=== PATIENT | female | born 1960 | race Hispanic/Latino ===

== ENCOUNTER 2024-06-02 13:39 | Emergency (ER) | payer OTHER ==
[2024-06-02] MEDS ORDERED: IBUPROFEN 200 MG TAB PO ONE (14:19)
--- NOTE | 2024-06-02 14:38 | RAD REPORT ---
EXAMINATION: Wrist Left 3 View, Hand Left 3 View CLINICAL INDICATION: Female, 63 years old. PAIN COMPARISON: No prior exam. VIEWS: 6 views FINDINGS: No acute fracture. [place] versus remote ulnar styloid fracture. No malalignment/dislocation. Mild to moderate degenerative changes are present the base of the thumb. Mild interphalangeal joint s pace narrowing. No erosions identified. Other: n/a IMPRESSION: No acute osseous abnormality involving either the left hand or wrist.
--- NOTE | 2024-06-02 15:00 | EDPHYS ---
Physician Documentation [facility] Name: Yamileth Anderson Age: 63 yrs Sex: Female : 1960 Arrival Date: 06/02/2024 Time: 13:39 Bed 11 Private MD: ED Physician Helena Benítez HPI: 06/02 14:09 This 63 yrs old Female presents to ER via Ambulatory with complaints of Hand cp Pain. 14:09 The patient or guardian reports pain. The complaints affect the left hand and left cp wrist. Context: gradually since March 2025. 14:09 Onset: The symptoms/episode began/occurred 3 month(s) ago. cp 14:09 Associated signs and symptoms: Pertinent positives: numbness of fingers, Pertinent cp negatives: acute injury. Historical: - Allergies: 14:08 PENICILLINS; cm10 14:08 Ampicillin; cm10 - PMHx: 14:08 Diabetes mellitus; Hypertensive disorder; cm10 - Immunization history:: Adult Immunizations up to date. - Infectious Disease History:: Denies. - Social history:: Smoking status: Patient denies any tobacco usage or history of. ROS: 14:15 MS/extremity: Positive for pain, of the left hand and left wrist, cp 14:15 Neck: Negative for pain with movement, pain at rest, cp 14:15 Eyes: Negative for injury, pain, redness, and discharge, cp 14:15 Constitutional: Negative for body aches, chills, fever, 14:15 Back: Negative for pain at rest, pain with movement, 14:15 All other systems are negative, Exam: 14:15 Head/Face: Normocephalic, atraumatic. cp 14:15 Constitutional: The patient appears in no acute distress, alert, awake, non-toxic, well developed, well nourished, 14:15 Neck: ROM/movement: pain, is not appreciated, limited range of motion, is not appreciated, 14:15 Chest/axilla: Inspection: normal, 14:15 Cardiovascular: Rate: tachycardic, Pulses: Pulses are 2+ in left radial artery. 14:15 Respiratory: the patient does not display signs of respiratory distress, Respirations: normal, no use of accessory muscles, no retractions, 14:15 Abdomen/GI: Inspection: abdomen appears normal, 14:15 Musculoskeletal/extremity: Extremities: noted in the left hand and left wrist: pain, tenderness, There is no evidence of decreased ROM, deformity, ROM: full active range of motion, in the left hand, Perfusion: the extremity is normally perfused throughout, the left middle and fourth fingers Tingling of extremity. Vital Signs: 14:07 BP 101 / 78; Pulse 112; Resp 15; Temp 96.6(TE); Pulse Ox 99% on R/A; Pain 10/10; cm10 15:19 BP 105 / 70; Pulse 101; Resp 16; Temp 98.1; Pulse Ox 100% ; me1 14:07 Pain Scale: Adult cm10 MDM: 14:04 Medical Screening Exam initiated cp 14:58 Data reviewed: vital signs, nurses notes, radiologic studies, plain films, and as a cp result, I will discharge patient. 14:58 Differential diagnosis: closed fracture, tendonitis, neuropathy. I considered the cp following discharge prescriptions or medication management in the emergency department Medications were administered in the Emergency Department. See MAR. Counseling: I had a detailed discussion with the patient and/or guardian regarding the historical points, exam findings, and any diagnostic results supporting the discharge/admit diagnosis, radiology results, the need for outpatient follow up, a hand specialist, to return to the emergency department if symptoms worsen or persist or if there are any questions or concerns that arise at home. Response to treatment: the patient's symptoms have mildly improved after treatment, and as a result, I will discharge patient. 06/02 14:16 Order name: XRAY Wrist LEFT 3 view; Complete Time: 14:54 cp 06/02 14:54 Interpretation: Report reviewed. cp 06/02 14:16 Order name: XRAY Hand LEFT 3 View; Complete Time: 14:54 cp 06/02 14:55 Interpretation: Report reviewed. cp Administered Medications: 14:25 Drug: Ibuprofen PO 600 mg PO once Route: PO; me1 15:20 Follow up: Response: No adverse reaction; Pain is decreased me1 Disposition Summary: 06/02/24 14:59 Discharge Ordered Notes: Location: Home cp Problem: an ongoing problem cp Symptoms: have improved cp Condition: Stable cp Diagnosis - Pain in hand and fingers cp - Pain in left wrist cp Followup: cp - With: Private Physician - When: DR Misael Manriquez - Reason: Recheck today's complaints Discharge Instructions: - Discharge Summary Sheet cp - Arthritis cp - Wrist Pain, Adult cp - Hand Pain cp Forms: - Medication Reconciliation Form cp - Antibiotic Education cp - Prescription Opioid Use cp - Patient Portal Instructions cp - Leadership Thank You Letter cp Prescriptions: - Celebrex 100 mg Oral Capsule - take 1 capsule ORAL route every 12 hours As needed take with food; 40 capsule; cp Refills: 0, Product Selection Permitted Signatures: Dispatcher [employer] John Andrade PA PA cp Martinez, Clarissa RN RN cm10 Cindy Buckley RN RN me1
--- NOTE | 2024-06-02 15:00 | ER ---
Nurse's Notes [facility] Name: Yamileth Anderson Age: 63 yrs Sex: Female : 1960 Arrival Date: 06/02/2024 Time: 13:39 Bed 11 Private MD: Diagnosis: Pain in hand and fingers;Pain in left wrist Presentation: 06/02 14:07 Chief complaint: Patient states: Left hand pain onset March. Pt reports having cm10 previous injury from when she was 19. Coronavirus screen: Client denies travel out of the [place] in the last 14 days. Ebola Screen: Patient denies travel to an Ebola-affected area in the 21 days before illness onset. Initial Sepsis Screen: Does the patient meet any 2 criteria? HR > 90 bpm. Does the patient have a suspected source of infection? No. Patient's initial sepsis screen is negative. Risk Assessment: Do you want to hurt yourself or someone else? Patient reports no desire to harm self or others. Onset of symptoms is unknown. 14:07 Method Of Arrival: Ambulatory cm10 14:07 Acuity: ELIZABETH 4 cm10 Historical: - Allergies: 14:08 PENICILLINS; cm10 14:08 Ampicillin; cm10 - PMHx: 14:08 Diabetes mellitus; Hypertensive disorder; cm10 - Immunization history:: Adult Immunizations up to date. - Infectious Disease History:: Denies. - Social history:: Smoking status: Patient denies any tobacco usage or history of. Screenin:21 [facility] ED Fall Risk Assessment (Adult) History of falling in the last 3 months, me1 including since admission No falls in past 3 months (0 pts) Confusion or Disorientation No (0 pts) Intoxicated or Sedated No (0 pts) Impaired Gait No (0 pts) Mobility Assist Device Used No (0 pt) Altered Elimination No (0 pt) Score/Fall Risk Level 0 - 2 = Low Risk Maintained a safe environment, Provided non-skid footwear, Hourly rounding (assess needs \T\ fall precautionary measures) done. Abuse screen: Denies threats or abuse. Nutritional screening: No deficits noted. Tuberculosis screening: No symptoms or risk factors identified. Assessment: 14:21 General: Appears in no apparent distress. Behavior is calm, cooperative, appropriate me1 for age, Reports Left hand pain onset March. Pt reports having previous injury from when she was 19. Pain: Complains of pain in left hand Pain does not radiate. Pain Quality of pain is described as aching, Pain began gradually, Is continuous. Neuro: Level of Consciousness is awake, alert, obeys commands, Oriented to person, place, time, situation, Appropriate for age. Cardiovascular: Patient's skin is warm and dry. Respiratory: Airway is patent Respiratory effort is even, unlabored, Respiratory pattern is regular, symmetrical. GI: No signs and/or symptoms were reported involving the gastrointestinal system. : No signs and/or symptoms were reported regarding the genitourinary system. EENT: No signs and/or symptoms were reported regarding the EENT system. Derm: Skin is intact, is healthy with good turgor, Skin is pink, warm \T\ dry. Musculoskeletal: Capillary refill < 3 seconds, Reports pain in left hand. Vital Signs: 14:07 BP 101 / 78; Pulse 112; Resp 15; Temp 96.6(TE); Pulse Ox 99% on R/A; Pain 10/10; cm10 15:19 BP 105 / 70; Pulse 101; Resp 16; Temp 98.1; Pulse Ox 100% ; me1 14:07 Pain Scale: Adult cm10 ED Course: 13:41 Patient arrived in ED. mr 13:44 John Atkinson PA is PHCP. cp 13:44 Helena Benítez MD is Attending Physician. cp 14:08 Triage completed. cm10 14:08 Arm band placed on right wrist. Patient placed in waiting room. cm10 14:20 Cindy Buckley, LIDA is Primary Nurse. me1 14:21 Patient has correct armband on for positive identification. Bed in low position. Call me1 light in reach. Side rails up X 1. Provided Education on: POC. Verbalized understanding.. 14:21 No provider procedures requiring assistance completed. Patient did not have IV access me1 during this emergency room visit. 14:28 XRAY Wrist LEFT 3 view In Process Unspecified. EDMS 14:28 XRAY Hand LEFT 3 View In Process Unspecified. EDMS Administered Medications: 14:25 Drug: Ibuprofen PO 600 mg PO once Route: PO; me1 15:20 Follow up: Response: No adverse reaction; Pain is decreased me1 Medication: 14:21 VIS not applicable for this client. me1 Outcome: 14:59 Discharge ordered by MD. cp 15:20 Discharged to home ambulatory, me1 15:20 Condition: stable 15:20 Discharge instructions given to patient, Instructed on discharge instructions, follow up and referral plans. medication usage, Demonstrated understanding of instructions, follow-up care, medications, Prescriptions given X 1, 15:20 Patient left the ED. me1 Signatures: Dispatcher [employer] EDMS Denzel Melissa, Reg Reg mr John Atkinson, SYMONE PA Meg España RN RN cm10 Cindy Buckley RN RN me1 Corrections: (The following items were deleted from the chart) 14:21 14:07 Chief complaint: Patient states: Left hand pain onset March. Pt reports having me1 previous injury from when she was 19. cm10 15:20 15:19 BP 105 / 7; Pulse 101bpm; Resp 16bpm; Pulse Ox 100%; Temp 98.1F; me1 me1
[2024-06-02 15:53] VITALS: BP 105/70; TEMP 98.1; O2SAT 100
== END 2024-06-02 15:20 | disposition home or self-care (01) ==
LOC: ER 13:39
DX: M79.642 Pain in left hand (principal); M79.645 Pain in left finger(s); M25.532 Pain in left wrist; E11.9 Type 2 diabetes mellitus without complications; I10 Essential (primary) hypertension; Z88.0 Allergy status to penicillin
CPT/HCPCS: 99283